=== PATIENT | female | born 1990 | race Caucasian/White ===

== ENCOUNTER → 2020-08-27 | Day surgery (SDC) | payer OTHER ==
[~2020-08-27] MED LIST: PERCOCET 5-3251 EACH PO
[2020-08-27 06:45] LABS: HCG (URINE) SCREEN NEGATIVE (NEGATIVE)
== END | disposition home or self-care (01) ==
LOC: FAS 06:11
PROVIDERS: Anesthesiology
DX: S83.512A Sprain of anterior cruciate ligament of left knee, initial encounter (principal); D64.9 Anemia, unspecified; G89.18 Other acute postprocedural pain; X58.XXXA Exposure to other specified factors, initial encounter
CPT/HCPCS: 84703; C1713; C1762; J0690; J1100; J1170; J1885; J2250; J2405; J2550; J2704; J2795; J3010; J7120